=== PATIENT | male | born 2000 | race Caucasian/White ===

== ENCOUNTER 2020-05-14 20:54 | Emergency (ER) | payer BC ==
[~2020-05-14] VITALS: Ht 193 cm; Wt 77.1 kg
--- NOTE | 2020-05-14 21:10 | NUR ---
Dr. Lozano at bedside for MSE.
[2020-05-14 21:48] LABS: BASOPHILS % (AUTO) 0.7 % (0.0-2.0); EOSINOPHILS # (AUTO) 0.1 K/uL (0.0-0.7); EOSINOPHILS % (AUTO) 2.4 % (0.0-7.0); HEMATOCRIT 42.6 % (36.7-47.1); HEMOGLOBIN 14.7 g/dL (12.5-16.3); LYMPHOCYTES # (AUTO) 1.8 K/uL (20.0-40.0); LYMPHOCYTES % (AUTO) 36.3 % (20.5-74.5); MEAN CORPUSCULAR HEMOGLOBIN 28.2 uug (23.8-33.4); MEAN CORPUSCULAR HGB CONC 34 g/dL (32.5-36.3); MEAN CORPUSCULAR VOLUME 81.7 fL (73.0-96.2); MONOCYTES # (AUTO) 0.4 K/uL (2.0-10.0); MONOCYTES % (AUTO) 7.3 % (0-11); NEUTROPHILS # (AUTO) 2.6 K/uL (1.8-8.9); NEUTROPHILS % (AUTO) 53.3 % (31.5-64.5); PLATELET COUNT (AUTO) 180 K/uL (152-348); RED BLOOD CELL COUNT(AUTO) 5.22 MIL/uL (4.06-5.63); WHITE BLOOD COUNT (AUTO) 4.9 K/uL (3.6-10.2)
[2020-05-14 21:54] LABS: POTASSIUM 3.9 mmol/L (3.5-5.1)
[2020-05-14 22:00] LABS: BILIRUBIN,TOTAL 0.6 mg/dL (0.2-1.0); TOTAL PROTEIN, SERUM 7.6 g/dL (6.4-8.2)
--- NOTE | 2020-05-14 22:36 | NUR ---
Patient discharged to home in stable condition. Written and verbal after care instructions given. Stressed follow up with primary MD, provided copies of lab results; or return to ER for worsening s/s. COVID 19 teaching on home care/quarantine explained to patient. Patient verbalizes understanding of instructions. Ambulated out of ER in steady gait.
[2020-05-14 22:38] VITALS: BP 150/70
== END 2020-05-14 22:39 | disposition home or self-care (01) ==
LOC: ER 20:56
DX: R53.83 Other fatigue (principal); R06.02 Shortness of breath; R07.9 Chest pain, unspecified; F17.290 Nicotine dependence, other tobacco product, uncomplicated; Z20.828 Contact with and (suspected) exposure to other viral communicable diseases
CPT/HCPCS: 36415; 71045; 80053; 85025; 93005; 99285; U0003; A4663